=== PATIENT | female | born 1960 | race Two or more races ===

== ENCOUNTER 2019-01-30 08:52 | Emergency (ER) | payer OTHER ==
[~2019-01-30] VITALS: Ht 162.6 cm; Wt 59.0 kg
[2019-01-30] MEDS ORDERED: TENORETIC 1001 EACH PO (09:02)
== END 2019-01-30 23:27 | disposition home or self-care (01) ==
LOC: ER 08:52
DX: K52.9 Noninfective gastroenteritis and colitis, unspecified (principal); K29.70 Gastritis, unspecified, without bleeding

== ENCOUNTER → 2019-07-24 | Outpatient (CLI) | payer OTHER ==
[~2019-07-24] MED LIST: TENORETIC 1001 EACH PO
== END | disposition home or self-care (01) ==
LOC: MAMO-SONO 08:15 → SONOGRAMA 08:15
DX: R10.84 Generalized abdominal pain (principal)

== ENCOUNTER 2020-08-24 07:40 | Outpatient (CLI) | payer OTHER | END 2020-08-24 07:53 | disposition home or self-care (01) | LOC: MAMO-SONO 07:40 | PROVIDERS: ATTEND General Practice | DX: Z12.31 Encounter for screening mammogram for malignant neoplasm of breast (principal); N64.59 Other signs and symptoms in breast ==

== ENCOUNTER 2021-08-08 07:17 | Outpatient (CLI) | payer OTHER | END 2021-08-08 07:30 | disposition home or self-care (01) | LOC: MAMO-SONO 07:17 | PROVIDERS: ATTEND General Practice | DX: Z12.31 Encounter for screening mammogram for malignant neoplasm of breast (principal) ==

== ENCOUNTER 2021-09-07 07:21 | Outpatient (CLI) | payer OTHER | END 2021-09-07 07:37 | disposition home or self-care (01) | LOC: MAMO-SONO 07:21 | PROVIDERS: ATTEND General Practice | DX: Z12.31 Encounter for screening mammogram for malignant neoplasm of breast (principal) ==

== ENCOUNTER 2021-11-02 07:36 | Outpatient (CLI) | payer OTHER | END 2021-11-02 07:46 | disposition home or self-care (01) | LOC: SONOGRAMA 07:36 | PROVIDERS: ATTEND General Practice | DX: R10.2 Pelvic and perineal pain (principal) ==

== ENCOUNTER 2022-01-23 09:59 | Emergency (ER) | payer OTHER ==
[~2022-01-23] VITALS: Ht 160 cm; Wt 59.0 kg
[2022-01-23] MEDS ORDERED: BENZONATATE200 M1 PO (14:45)
== END 2022-01-23 14:49 | disposition home or self-care (01) ==
LOC: ER 09:59
DX: J06.9 Acute upper respiratory infection, unspecified (principal); B34.9 Viral infection, unspecified

== ENCOUNTER → 2022-08-09 | Outpatient (CLI) | payer OTHER ==
[~2022-08-09] MED LIST changes: +BENZONATATE200 M1 PO
== END | disposition home or self-care (01) ==
LOC: MAMO-SONO 07:18
PROVIDERS: ATTEND General Practice
DX: Z12.31 Encounter for screening mammogram for malignant neoplasm of breast (principal)

== ENCOUNTER 2022-12-25 10:59 | Outpatient (CLI) | payer OTHER | END 2022-12-25 11:04 | disposition home or self-care (01) | LOC: MAMO-SONO 10:59 | PROVIDERS: ATTEND General Practice | DX: N64.4 Mastodynia (principal); Z12.31 Encounter for screening mammogram for malignant neoplasm of breast ==

== ENCOUNTER 2023-02-19 07:38 | Outpatient (CLI) | payer OTHER | END 2023-02-19 07:43 | disposition home or self-care (01) | LOC: RAD 07:38 | PROVIDERS: ATTEND General Practice | DX: R00.2 Palpitations (principal); R07.9 Chest pain, unspecified ==

== ENCOUNTER 2023-09-24 07:20 | Outpatient (CLI) | payer OTHER | END 2023-09-24 07:28 | disposition home or self-care (01) | LOC: MAMO-SONO 07:20 | PROVIDERS: ATTEND General Practice | DX: Z12.31 Encounter for screening mammogram for malignant neoplasm of breast (principal) ==